=== PATIENT | female | born 1955 | race Hispanic/Latino ===

== ENCOUNTER → 2018-07-16 | Outpatient (CLI) | payer OTHER ==
[~2018-07-16] MED LIST: ASPI-1181 PO; ATOR40TA69 PO; INSLAN SQ; INSU100V SQ; LIRA0.6P SQ; LOSARTAN POTASSIUM; METF-446 PO; OMEGA XL; PEPCID OTC PO
== END | disposition home or self-care (01) ==
LOC: RAH 11:24
PROVIDERS: ATTEND Family Medicine
DX: N20.0 Calculus of kidney (principal); Z90.49 Acquired absence of other specified parts of digestive tract
CPT/HCPCS: 74176

== ENCOUNTER → 2022-11-22 | Outpatient (CLI) | payer OTHER ==
[~2022-11-22] MED LIST changes: -ASPI-1181 PO; +ASPI-1443 PO
== END | disposition home or self-care (01) ==
LOC: SHCH 14:14
PROVIDERS: ATTEND Student in an Organized Health Care Education/Training Program
DX: I25.10 Atherosclerotic heart disease of native coronary artery without angina pectoris (principal)
CPT/HCPCS: 93306

== ENCOUNTER → 2023-04-04 | Outpatient (CLI) | payer OTHER ==
[~2023-04-04] MED LIST changes: +GADOTERATE MEGLUMINE 10 MMOL/20 ML VIAL IV ONE
== END | disposition home or self-care (01) ==
LOC: RAH 14:45
PROVIDERS: ATTEND Family Medicine
DX: M54.16 Radiculopathy, lumbar region (principal); M54.50 Low back pain, unspecified
CPT/HCPCS: 72158; A9575

== ENCOUNTER → 2024-06-03 | Outpatient (CLI) | payer OTHER ==
[~2024-06-03] MED LIST changes: -GADOTERATE MEGLUMINE 10 MMOL/20 ML VIAL IV ONE
[2024-06-03 11:54] LABS: HEMOGLOBIN A1C 7.7 % (4.0-6.0)
[2024-06-03 12:21] LABS: CHOLESTEROL 162 mg/dL (<200); HDL CHOLESTEROL 69 mg/dL (35-85); LDL DIRECT 70 mg/dL (0-99); TRIGLYCERIDES 147 mg/dL (30-200)
== END | disposition home or self-care (01) ==
LOC: LAB 08:47
PROVIDERS: ATTEND Student in an Organized Health Care Education/Training Program
DX: I10 Essential (primary) hypertension (principal); E11.9 Type 2 diabetes mellitus without complications
CPT/HCPCS: 36415; 80061; 83036

== ENCOUNTER → 2024-06-27 | Outpatient (CLI) | payer OTHER ==
[2024-06-27 12:47] LABS: ALBUMIN 3.8 g/dL (3.5-5.0); BILIRUBIN,TOTAL 0.6 mg/dL (0.2-1.0); CREATININE 1.2 mg/dL (0.5-1.0); POTASSIUM 4.5 mmol/L (3.5-5.1); TOTAL PROTEIN, SERUM 7.3 g/dL (6.0-8.3)
== END | disposition home or self-care (01) ==
LOC: LAB 09:39
PROVIDERS: ATTEND Student in an Organized Health Care Education/Training Program
DX: I12.9 Hypertensive chronic kidney disease with stage 1 through stage 4 chronic kidney disease, or unspecified chronic kidney disease (principal); E11.22 Type 2 diabetes mellitus with diabetic chronic kidney disease; N18.2 Chronic kidney disease, stage 2 (mild); E66.01 Morbid (severe) obesity due to excess calories; E78.5 Hyperlipidemia, unspecified; R07.9 Chest pain, unspecified; R00.2 Palpitations
CPT/HCPCS: 36415; 80053

== ENCOUNTER → 2024-07-09 | Outpatient (CLI) | payer OTHER ==
[~2024-07-09] MED LIST changes: +IOHEXOL 350 MG/ML 100ML INFUS..BTL IV ONE; +metoPROLOL tartRATE 1 MG/ML 5ML VIAL IV ONE
--- NOTE | 2024-07-09 13:59 | HMCIMG ---
CT CARDIAC ANGIO W/CONT. CCTA HISTORY: Chest pain COMPARISON: None TECHNIQUE: Multiple sequential axial images of the chest were obtained along with the CT angiogram of the chest study. Patient was given 100 cc of Omnipaque through intravenous route. FINDINGS: There is no evidence of pulmonary nodule or parenchymal disease. No pleural effusion or pericardial effusion is seen. There is no evidence of pneumothorax. There are normal size mediastinal and hilar lymph nodes. The heart is borderline enlarged. Coronary arterial calcifications are seen. Degenerative changes of the thoracolumbar spine are present. IMPRESSION: 1. No evidence of pulmonary nodule or effusion is seen. Please see CT angiogram report of coronary arteries.
== END | disposition home or self-care (01) ==
LOC: RAH 07-04 13:10
PROVIDERS: ATTEND Student in an Organized Health Care Education/Training Program
DX: I25.10 Atherosclerotic heart disease of native coronary artery without angina pectoris (principal); R07.9 Chest pain, unspecified; M47.815 Spondylosis without myelopathy or radiculopathy, thoracolumbar region
CPT/HCPCS: 75574; J3490; Q9967